=== PATIENT | male | born 1950 | race Caucasian/White ===

== ENCOUNTER 2018-12-07 10:45 | Inpatient (IN) | payer MEDICARE, OTHER | END 2018-12-09 15:10 | disposition home health service (06) | LOC: PAS IN 10:45 → ORTHO 4S 17:00 | PROC: 0SRB0J9 Replacement of Left Hip Joint with Synthetic Substitute, Cemented, Open Approach (ICD-10-PCS; principal; 2018-12-07 13:40) | DX: M16.12 Unilateral primary osteoarthritis, left hip (principal); D62 Acute posthemorrhagic anemia; K21.9 Gastro-esophageal reflux disease without esophagitis ==